=== PATIENT | male | born 1960 | race Caucasian/White ===

== ENCOUNTER 2017-01-26 12:27 | Emergency (ER) | payer MEDICARE, OTHER ==
[~2017-01-26] VITALS: Ht 177.8 cm; Wt 95.3 kg
== END 2017-01-26 13:22 | disposition short-term general hospital (02) ==
LOC: ER 12:27
DX: M54.5 Low back pain (principal); I10 Essential (primary) hypertension; Z98.890 Other specified postprocedural states; X37.1XXA Tornado, initial encounter